=== PATIENT | female | born 1985 | race Caucasian/White ===

== ENCOUNTER 2020-09-17 10:32 | Emergency (ER) | payer OTHER, SELFPAY ==
[2020-09-17] MEDS ORDERED: Lidocaine 1% w/Epinephrine 1:100K 20 ML VIAL ONE (12:11)
[2020-09-17] MEDS ORDERED: Bacitracin 1 PK ONE (12:30)
== END 2020-09-17 13:30 | disposition home or self-care (01) ==
LOC: ERS 10:32
DX: S61.011A Laceration without foreign body of right thumb without damage to nail, initial encounter (principal); W26.0XXA Contact with knife, initial encounter
CPT/HCPCS: 12002